=== PATIENT | female | born 2000 | race Caucasian/White ===

== ENCOUNTER 2020-12-14 11:39 | Emergency (ER) | payer BC, SELFPAY ==
--- NOTE | ~2020-12-14 | XR_ITS ---
EXAMINATION: XR foot RT min 3V EXAM DATE: 12/14/2020 12:23 INDICATION: rt lateral foot pain s/p fall today . TECHNIQUE: Right foot dorsoplantar, lateral and oblique projections obtained and reviewed. There is no prior study for comparison. FINDINGS: There is acute closed posttraumatic nondisplaced fracture at the base of the right 5th meta tarsal bone extending toward the 4th metatarsal base. Fracture fragment appears to be over 1 cm in gr eatest dimension. Uncertain whether or not this may need surgical fixation. Recommend orthopedic foll ow-up to ensure union. There is overlying soft tissue swelling. No other suspicious findings. IMPRESSION: 1. Right 5th metatarsal base nondisplaced fracture; orthopedic consult. Reviewed, dictated and finalized at location A.
[2020-12-14 11:51] VITALS: BP 123/61; PULSE 96; RESP 16; TEMP 36.5; O2SAT 99
--- NOTE | 2020-12-14 12:39 | ED.LOWEXIN ---
HPI - Extremity Injury (Lower) General Chief Complaint: Extremity Injury, Lower Stated Complaint: right foot pain Time Seen by Provider: 12/14/20 12:23 Source: patient and RN notes reviewed Mode of arrival: wheelchair Limitations: no limitations History of Present Illness HPI Narrative: Patient presents today complaining of right foot injury. She slid on an incline on sidewalk falling onto her foot just prior to arrival. Reports some numbness to the lateral portion of her foot. She currently rates her pain 6/10, which increases with weightbearing. She has tried no [id number] interventions prior to arrival. She has not been able to put any weight on her foot since the injury. MD complaint: foot injury Related Data Home Medications Medication Instructions Recorded Confirmed No Home Medications 12/14/20 12/14/20 Allergies Allergy/AdvReac Type Severity Reaction Status Date / Time Penicillins Allergy Mild Verified 01/06/09 20:23 Sulfa (Sulfonamide Allergy Mild Verified 01/06/09 20:24 Antibiotics) Review of Systems Review of Systems: CONSTITUTIONAL: Denies body aches, fever, chills, or sweats. EYES: Denies visual changes, redness, or discharge. ENT: Denies rhinorrhea, congestion, sore throat, or otalgia. CARDIOVASCULAR: Denies chest pain, palpitations, or edema. RESPIRATORY: Denies cough or dyspnea. GASTROINTESTINAL: Denies abdominal pain, nausea, vomiting, or diarrhea. GENITOURINARY: Denies dysuria or hematuria. SKIN: Denies rash, itching, or wounds. MUSCULOSKELETAL: Denies back pain, or myalgia. + Right foot injury NEUROLOGIC: Denies headache, tingling, or weakness. PSYCH: Denies depression or anxiety. PMFSH Comments At time of signature, I have reviewed and agree with nursing past medical, surgical, social and family history unless otherwise noted. Please see nursing chart for further information. There is no relevant family history pertinent to the presenting complaint Exam Narrative: GENERAL: Well-appearing, well-nourished, and in no acute distress. HEAD: Normocephalic, atraumatic. EYES: EOMI. No redness or drainage. Conjunctivae normal. ENT: Mucous membranes pink and moist. NECK: Normal AROM. CHEST: No respiratory distress. EXTREMITIES: Right foot: Ecchymosis to the lateral portion of the foot with mild edema. Tenderness to the same area, overlying metatarsals 4 and 5. Distal sensation intact. Capillary refill normal. Pedal pulse normal. Full range of motion of all toes with increased pain. SKIN: Warm, dry, no rash. Capillary refill normal. Normal skin turgor. NEURO: No focal deficits. Alert and oriented x3. Gait steady. PSYCH: Normal affect. No signs of depression or anxiety. Course Vital Signs Vital signs: Vital Signs Temperature 97.7 F 12/14/20 11:51 Pulse Rate 96 12/14/20 11:51 Respiratory Rate 16 12/14/20 11:51 Blood Pressure 123/61 12/14/20 11:51 Pulse Oximetry 99 12/14/20 11:51 Temperature 97.7 F 12/14/20 11:51 Pulse Rate 96 12/14/20 11:51 Respiratory Rate 16 12/14/20 11:51 Blood Pressure 123/61 12/14/20 11:51 Pulse Oximetry 99 12/14/20 11:51 Reviewed. Pt has been instructed to follow up with her PCP regarding her elevated blood pressure today. Procedures Orthopedic Splinting/Casting Injury #1: Splinting/Casting Date: 12/14/20 Splinting/Casting Time: 12:30 Side: right Lower Extremity Injury Location: foot Lower Extremity Immobilizer: posterior splint Splint: customized in ED OCL: short leg Pre-Procedure Neuro Vascular Exam: normal Post-Procedure Neuro Vascular Exam: normal Additional Comments: Applied by tech. MDM - Extremity Injury (Lower) Differential Diagnosis Differential diagnosis: Likely other (Foot fracture, foot sprain, contusion) Imaging Data Radiologist's impression: ITS Impressions Foot X-Ray 12/14/20 12:25 IMPRESSION: 1. Right 5th metat
--- NOTE | 2020-12-14 13:24 | PC.NURSE ---
pt states she will get crutches at another place
== END 2020-12-14 13:24 | disposition home or self-care (01) ==
PROVIDERS: Emergency Provider Nurse Practitioner
DX: S92.354A Nondisplaced fracture of fifth metatarsal bone, right foot, initial encounter for closed fracture (principal); W01.0XXA Fall on same level from slipping, tripping and stumbling without subsequent striking against object, initial encounter
CPT/HCPCS: 29515; 73630; 99214; G0463

== ENCOUNTER 2021-09-11 20:18 | Emergency (ER) | payer BC, SELFPAY ==
--- NOTE | ~2021-09-11 | XR_ITS ---
XR knee RT min 4V 09/11/2021 21:28 INDICATION: Right knee pain PROCEDURE: 4 views right knee COMPARISON: No prior studies for comparison. FINDINGS: Fracture, dislocation or subluxation is not identified. The soft tissues appear within norm al limits. No foreign bodies are identified. IMPRESSION: 1: NO ACUTE BONE OR JOINT ABNORMALITY IDENTIFIED. Reviewed, dictated and finalized at location A.
[2021-09-11 21:06] VITALS: BP 142/89; PULSE 80; RESP 16; TEMP 36.4; O2SAT 99
--- NOTE | 2021-09-11 21:28 | ED.LOWEXIN ---
HPI - Extremity Injury (Lower) General Chief Complaint: Extremity Injury, Lower Stated Complaint: right leg injury Time Seen by Provider: 09/11/21 21:12 Source: patient Mode of arrival: ambulatory Limitations: no limitations History of Present Illness HPI Narrative: This is a 21-year-old female that presents to the emergency department for right knee pain present since earlier tonight. No known injury or trauma. Reports she was just going to stand on the leg when her knee started to hurt. The pain is worse with weightbearing and relieved with rest. Denies erythema, edema, decreased range of motion, or numbness. Related Data Home Medications Medication Instructions Recorded Confirmed No Home Medications 12/14/20 12/14/20 Allergies Allergy/AdvReac Type Severity Reaction Status Date / Time Penicillins Allergy Mild Seizure Verified 09/11/21 21:19 Sulfa (Sulfonamide Allergy Mild Unknown Verified 09/11/21 21:19 Antibiotics) Review of Systems Review of Systems: CONSTITUTIONAL: Denies fever SKIN: Denies rash MUSCULOSKELETAL: Reports joint pain, and myalgia. NEUROLOGIC: Denies numbness, or weakness. All systems reviewed & are unremarkable except as noted in HPI and below PMFSH Past Medical History Medical History (Updated 09/11/21 @ 22:03 by Aleta Duong PA-C) History of PCOS Social History Social History (Updated 09/11/21 @ 21:29 by Aleta Duong PA-C) Smoking status: Never smoker Exam Narrative: GENERAL: Well-appearing, well-nourished, and in no acute distress. HEAD: Normocephalic, atraumatic. EYES: EOMI. EXTREMITIES: Normal range of motion. No edema, erythema or obvious deformity. Normal DP pulse. Normal sensation SKIN: Warm, dry, no rash. NEURO: No focal deficits. Alert and oriented x3. PSYCH: Normal mood and affect Course Vital Signs Vital signs: Vital Signs Temperature 97.5 F L 09/11/21 21:06 Pulse Rate 80 09/11/21 21:06 Respiratory Rate 16 09/11/21 21:06 Blood Pressure 142/89 H 09/11/21 21:06 Pulse Oximetry 99 09/11/21 21:06 Oxygen Delivery Room Air 09/11/21 21:06 Temperature 97.5 F L 09/11/21 21:06 Pulse Rate 80 09/11/21 21:06 Respiratory Rate 16 09/11/21 21:06 Blood Pressure 142/89 H 09/11/21 21:06 Pulse Oximetry 99 09/11/21 21:06 Oxygen Delivery Room Air 09/11/21 21:06 MDM - Extremity Injury (Lower) MDM Narrative Medical decision making narrative: Patient presents to the emergency department for right knee pain noted since tonight. Patient is neurovascularly intact. No edema, erythema or warmth of the knee. Right knee x-ray without acute osseous abnormalities. Patient placed in Compa wrap and given crutches. Instructed to rest, ice and take [id number] pain medication as needed. She is to follow-up with orthopedics. She was given warnings to return to the ER Imaging Data Radiologist's impression: ITS Impressions Knee X-Ray 09/11/21 21:32 IMPRESSION: 1: NO ACUTE BONE OR JOINT ABNORMALITY IDENTIFIED. Critical Care Time Critical Care Time Critical Care Time: No Discharge Plan Discharge Clinical Impression: Acute internal derangement of knee Qualifiers: Laterality: right Qualified Code(s): M23.91 - Unspecified internal derangement of right knee Patient Disposition: Home, Self-Care Condition: Stable Instructions: Knee Sprain (ED) Additional Instructions: Return to the ER if you experience fever, redness and swelling of your leg, weakness, numbness, or any other symptoms that are concerning to you Rest, use ice, take anti-inflammatories (Aleve, Ibuprofen, Naproxen, etc) or Tylenol as needed for pain Follow up with orthopedics Prescriptions: No Action No Home Medications Follow-up/Referrals: Fidel Barbour MD [Physician] - 1 Week UNKNOWN,DOCTOR [Non-Staff] -
== END 2021-09-11 22:15 | disposition home or self-care (01) ==
PROVIDERS: Emergency Provider Emergency Medicine
DX: M23.91 Unspecified internal derangement of right knee (principal)
CPT/HCPCS: 73564; 99283